=== PATIENT | female | born 1985 | race American Indian/Alaskan Native ===

== ENCOUNTER 2017-03-22 14:08 | Outpatient (CLI) | payer MEDICAID ==
[2017-03-22] MEDS ORDERED: LACTATED RINGERS 500 ML IV ONE (14:46)
[2017-03-22] MEDS: BRETHINE SUB-Q SCH ×2 (15:30→17:00)
[2017-03-22 15:57] LABS: Bilirubin,Urine NEG (Negative); Blood,Urine NEG (Negative); Ketones,Urine TR mg/dL (Negative); Leukocyte Esterase,Urine NEG (Negative); Mucus,Urine 3+ /HPF; Nitrite,Urine NEG (Negative)
[2017-03-22 17:52] VITALS: BP 141/72
== END 2017-03-22 18:20 | disposition home or self-care (01) ==
LOC: TRG 14:08
PROVIDERS: ATTEND Obstetrics & Gynecology
DX: O47.03 False labor before 37 completed weeks of gestation, third trimester (principal); Z3A.28 28 weeks gestation of pregnancy
CPT/HCPCS: 36415; 59025; 81001; 82731; 87086; 96360; 96372; J3105; J7120

== ENCOUNTER 2017-05-30 05:29 | Inpatient (IN) | payer OTHER, MEDICAID ==
--- NOTE | 2017-05-29 19:18 | History and Physical Report ---
History of Present Illness Date of examination: 05/26/17 Date of admission: 05/30/17 Chief complaint: her for History of present illness: pt here for repeat . All riks, benefits and alternatives were d/w pt and questions were addressed and answered. Consent signed and placed on the chart. EDC Confirmation: 06/04/2017 Gestational Age: 14 4/7 weeks Past History : 2 Term Births: 1 Living Children: 1 Para: 1 Prev : 1 # 1 Delivery date: 01/07/2014 Weeks Gestation: 38 Delivery type: Anesthesia type: epidural Delivery location: [facility] Infant Sex: male weight: 5.63 Comments: breech presentation, Premature ROM Past Medical History: Reviewed history and no changes required: Negative Past Medical History Past Surgical History: negative Past Medical History Surgery (Non-polish maker): negative Abnormal PAP: negative PAIGE Exposure: negative Infertility: negative Uterine Anomaly: negative Uterine Surgery (not C/S): negative Other Gynecologic Problems: negative Infection History Hx of STD: none HIV Risk Eval: low risk Hepatitis B Risk Eval: low risk Personal hx. of genital herpes: no Partner hx. of genital herpes: no Rash, Viral, or Febrile illness since last LMP? no Varicella/Chicken Pox Status: Previous Disease TB Risk: no Genetic History Congenital Heart Defect: Mom: no Dad: no Rivera Disease: Mom: no Dad: no Thalassemia Mom: no Dad: no Neural Tube Defect Mom: no Dad: no Down's Syndrome Mom: no Dad: no Salvador-Sachs Mom: no Dad: no Sickle Cell Disease/Trait Mom: no Dad: no Hemophilia Mom: no Dad: no Muscular Dystrophy Mom: no Dad: no Cystic Fibrosis Mom: no Dad: no Forreston Chorea Mom: no Dad: no Mental Retardation Mom: no Dad: no Fragile X Mom: no Dad: no Other Genetic/Chromosomal Disorder Mom: no Dad: no Child w/other defect Mom: no Dad: no Enviromental Exposures Xray Exposure: no Medication, drug, or alcohol use since LMP: no Chemical/Other Exposure: no Exposure to Cat Liter: no Hx of Parvovirus (Fifth Disease): no Occupational Exposure to Children: none Current Allergies (reviewed today): No known allergies Past History Past Medical History: no pertinent history 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: denies: abnormal PAP smear Family/Genetic History: other (see hpi) Social history: no significant social history, single - Obstetrical History Expected Date of Delivery: 06/04/17 Actual Gestation: 39 Week(s) 1 Day(s) : 2 Para: 1 Number of Living Children: 1 Medications and Allergies Allergies Allergy/AdvReac Type Severity Reaction Status Date / Time No Known Allergies Allergy Verified 05/07/13 14:38 Home Medications Medication Instructions Recorded Confirmed Last Taken Type Pnv with Ca,No.72/Iron/FA 1 tab PO DAILY 11/23/13 03/22/17 1 Day Ago History [ Plus Tablet] ~03/21/17 Active Meds: Active Medications Citric Acid/Sodium Citrate (Bicitra) 30 ml PO ONCE ONE Stop: 05/30/17 05:01 Famotidine (Pepcid) 20 mg IV ONCE ONE Stop: 05/30/17 05:01 Cefazolin Sodium (Ancef/Sterile Water 2 Gm/20 Ml) 2 gm in 20 mls @ 80 mls/hr IV PREOP NR PRN Reason: Protocol Lactated Ringer's (Lactated Ringers) 1,000 mls @ 2,250 mls/hr IV PREOP MAYO Stop: 05/31/17 05:27 Oxytocin/Sodium Chloride (Pitocin/Ns 20 Unit/1000ml Drip) 20 units in 1,000 mls @ 0 mls/hr IV TITR MAYO PRN Reason: As Directed Metoclopramide HCl (Reglan) 10 mg IV ONCE ONE Stop: 05/30/17 05:01 Review of Systems All systems: negative - Physical Exam Cardiovascular: Normal S1, Normal S2 Lungs: Positive: Clear to auscultation, Normal air movement Abdomen: Positive: normal appearance, soft. Negative: distention, tenderness Genitourinary (Female): Positive: other (deferred) Extremities: Positive: normal. Negative: tenderness, edema Deep Tendon Reflex Grade: Normal +2 Results All other labs normal. Assessment and Plan - Patient Problems (1) 39 weeks gestation of Status: Acute (2) Previous delivery affecting , antepartum Status: Acute Plan to address problem: -admit -prepare for repeat -consent signed and placed on the chart
[~2017-05-30 05:29] MED LIST: ANCEF/STERILE WATER 2 GM/20 ML 2 GM/20 ML SYRINGE IV NR; LACTATED RINGERS 1,000 ML IV SCH; PITOCin/NS 20 UNIT/1000ML DRIP 20 UNITS/1,000 ML BAG IV SCH
[2017-05-30] MEDS ORDERED: BICITRA PO ONE (06:00)
[2017-05-30] MEDS ORDERED: PEPCID IV ONE (06:00)
[2017-05-30] MEDS ORDERED: REGLAN IV ONE (06:00)
[2017-05-30 06:30] LABS: Basophils % (Auto) 0.6 % (0.0-1.8); Eosinophils # (Auto) 0.3 K/mm3 (0.0-0.4); Eosinophils % (Auto) 3.4 % (0.0-4.3); Hematocrit 31.3 % (30.3-42.9); Hemoglobin 9.9 gm/dl (10.1-14.3); Lymphocytes % (Auto) 22.4 % (13.4-35.0); Mean Corpuscular HGB Conc 32 % (30-34); Mean Corpuscular Volume 75 fl (79-97); Monocytes # (Auto) 0.8 K/mm3 (0.0-0.8); Monocytes % (Auto) 8.7 % (0.0-7.3); Platelet Count 356 K/mm3 (140-440); Red Cell Distribution Width 15.4 % (13.2-15.2)
[2017-05-30 07:07] LABS: Mean Corpuscular Hemoglobin 24 pg (28-32)
[2017-05-30] MEDS ORDERED: MORPHINE ONE (07:25)
--- NOTE | 2017-05-30 07:38 | Anesthesia Consultation ---
Anesthesia Consult and Med Hx Date of service: 05/30/17 - Airway Anesthetic Teeth Evaluation: Crowns ROM Head & Neck: Adequate Mental/Hyoid Distance: Adequate Mallampati Class: Class II Intubation Access Assessment: Probably Good - Pulmonary Exam CTA: Yes - Cardiac Exam Cardiac Exam: RRR - Pre-Operative Health Status ASA Pre-Surgery Classification: ASA2 Proposed Anesthetic Plan: Spinal (previous ) - Pulmonary Hx Asthma: No COPD: No Hx Pneumonia: No - Cardiovascular System Hx Hypertension: No - Central Nervous System Hx Seizures: No Hx Psychiatric Problems: No - Endocrine Hx Renal Disease: No Hx End Stage Renal Disease: No Hx Hypothyroidism: No Hx Hyperthyroidism: No - Hematic Hx Anemia: No Hx Sickle Cell Disease: No - Other Systems Hx Alcohol Use: No
--- NOTE | 2017-05-30 07:39 | Anesthesia Day of Surgery ---
Anesthesia Day of Surgery - Day of Surgery Patient Examined: Yes Patient H&P Reviewed: Yes Patient is NPO: Yes
[2017-05-30] MEDS ORDERED: WATER FOR IRRIG STERILE IR ONE (08:10)
[2017-05-30] MEDS ORDERED: NACL 0.9% IR ONE (08:10)
--- NOTE | 2017-05-30 09:33 | Operative Report ---
Operative Report Operative Report: Date of procedure: 05/30/2017 Pre-operative diagnosis: 39 weeks gestation Previous Uterine fibroids Post-operative diagnosis: Same Procedure name(s): Repeat low transverse section via Pfannenstiel skin incision Surgeon: Dr. Crowder Sulfur Chloride Operator: SHAE Anesthesia: Epidural EBL: 800 mL Urine output: 150 mL of clear urine out at the end of the procedure Fluids: 1 L Findings: Liveborn female weight 6 lbs. 14 oz. Apgars of 8 and 9 at one and 5 minutes Nuchal cord 1 that was easily reduced Terminal meconium Uterine fibroids measuring approximately from 1 cm to 4 cm Indications: Patient presents for scheduled repeat section. All risks benefits and alternatives were discussed with the patient. Consents were signed and placed on the chart. Procedure: Patient was taking to the operating room. Patient was then prepped and draped in sterile fashion after anesthesia was found to be adequate. A low transverse skin incision was made with the scalpel through previous incisional scar and carried down to the underlying layer of fascia with the Bovie. The fascia was then incised in the midline and this incision was extended bilaterally with the Bovie. The superior aspect of the fascia was grasped with Aubrey clamps tented upward and dissected off of the anterior rectus muscles with the scalpel. In similar fashion the inferior aspect of the fascia was grasped with Aubrey clamps tented upward and dissected off of the anterior rectus muscles. The rectus muscles were then bluntly divided in the midline. The peritoneum was identified and entered into sharply. Nadja retractor was placed The bladder blade was placed. A lower transverse uterine incision was made with the scalpel and extended bilaterally with the bandage scissors. Artificial rupture of membranes was performed yielding clear amniotic fluid. The 's head was then delivered atraumatically. Nuchal cord was easily reduced. The anterior shoulder and rest of delivered without difficulty. The umbilical cord was clamped x2. The cord was cut. The infant was then placed in sterile bassinet. [The cord blood was collected]. The placenta was manually extracted in its entirety. The uterus was exteriorized and cleared of all clots and debris. The uterine incision was closed using 0 Vicryl in a running locking fashion. The posterior cul-de-sac was copiously irrigated. The uterus was returned to the abdomen. The gutters were also irrigated. The anterior rectus muscles were reapproximated using 3-0 Vicryl. The anterior rectus fascia was reapproximated using 0 Vicryl in a running fashion. The subcuticular fat was reapproximated using 2-0 Vicryl in a running fashion. The skin was reapproximated with 4-0 Monocryl in a subcuticular stitch. The patient tolerated the procedure well. Sponge lap and needle counts were all correct x3. Patient was taken to the recovery room awake and in stable condition.
[2017-05-30] MEDS ORDERED: NACL 0.9% 1000 ML 1,000 ML ONE (09:42)
[2017-05-30] MEDS ORDERED: TORADOL IV PRN (10:00)
[2017-05-30] MEDS ORDERED: FEOSOL PO SCH (10:00)
[2017-05-30] MEDS ORDERED: TUCKS PAD TP PRN (10:00)
[2017-05-30] MEDS ORDERED: SODIUM CHLORIDE FLUSH SYRINGE 10 ML IV PRN (10:00)
[2017-05-30] MEDS ORDERED: MORPHINE IV PRN ×2 (10:00→10:30)
[2017-05-30] MEDS ORDERED: LANSINOH TP PRN (10:00)
[2017-05-30] MEDS ORDERED: NACL 0.9% 500 ML 500 ML IV NR (10:00)
[2017-05-30] MEDS ORDERED: MYLICON PO PRN (10:00)
[2017-05-30] MEDS ORDERED: NARCAN 0.4 MG/1 ML IV PRN (10:30)
[2017-05-30] MEDS: BENADRYL IV PRN (10:54)
[2017-05-30] MEDS ORDERED: ZOFRAN IV PRN (11:00)
[2017-05-30] MEDS ORDERED: ANCEF/NS 1 GM/50 ML 1 GM/50 ML BAG IV SCH (15:00)
[2017-05-30] MEDS: D5LR 1,000 ML IV SCH (16:28)
[2017-05-30] MEDS: ceFAZolin 1 GM in NACL 0.9% 20 ML IV SCH (16:28)
[2017-05-30 20:23] LABS: Hematocrit 27.6 % (30.3-42.9); Hemoglobin 8.8 gm/dl (10.1-14.3)
[2017-05-31] MEDS: MOTRIN PO PRN ×4 (00:11→22:23)
[2017-05-31] MEDS: D5LR 1,000 ML IV SCH (00:11)
[2017-05-31] MEDS: BENADRYL IV PRN (00:22)
[2017-05-31] MEDS: ceFAZolin 1 GM in NACL 0.9% 20 ML IV SCH (00:23)
--- NOTE | 2017-05-31 06:45 | Progress Note ---
Assessment and Plan - Patient Problems (1) delivery delivered Onset Date: ~05/30/17 Current Visit: No Status: Acute Plan to address problem: No c/o voiced VSS FF below umb Lochia small Dressing D&I to be removed this AM H &H01/29 drop r/t blood loss from surgery Pt is asymptomatic Doing well s/p repeat c/s P: continue pathway Advance as tolerated. Subjective - Subjective Date of service: 05/31/17 (no c/o voiced) Principal diagnosis: Day # 1 s/p repeat c/s Patient reports: appetite normal, voiding normally, pain well controlled, ambulating normally : doing well Objective - Vital Signs Latest vital signs: Vital Signs Temp Pulse Resp BP BP Pulse Ox 05/31/17 06:21 18 05/31/17 00:25 98.3 F 63 20 125/76 95 05/31/17 00:11 18 05/30/17 20:44 98.8 F 61 20 128/72 95 05/30/17 16:03 67 98 05/30/17 16:00 97.6 F 65 18 129/79 97 05/30/17 14:05 106/41 98 05/30/17 11:16 97.5 F L 20 141/79 05/30/17 11:00 97.5 F L 50 L 20 141/79 100 05/30/17 10:45 97.5 F L 05/30/17 10:40 60 24 126/80 100 05/30/17 10:31 57 L 19 116/57 100 05/30/17 10:30 56 L 17 127/73 100 05/30/17 10:26 59 L 14 127/73 100 05/30/17 10:20 51 L 16 130/69 98 05/30/17 10:15 51 L 16 123/70 97 05/30/17 10:10 51 L 16 125/72 99 05/30/17 10:05 49 L 16 127/70 100 05/30/17 10:00 56 L 18 124/78 100 05/30/17 09:55 52 L 13 127/69 99 05/30/17 09:50 54 L 11 L 124/69 100 05/30/17 09:44 98 05/30/17 09:42 97.5 F L 56 L 16 122/68 98 05/30/17 07:16 98.6 F 18 Intake and Output 05/30/17 05/30/17 05/31/17 14:59 22:59 06:59 Intake Total 7284 540 1317.583 Output Total 210 1000 1200 Balance 1340 -220 4.583 Intake: IV 1550 964.583 D5lr 1,000 ml @ 125 mls/ 964.583 hr IV DIRECT MAYO Rx#: [id number] Oral 300 Intake, Free Water 480 240 Output: Urine 210 1000 1200 Indwelling Catheter 1000 1200 Other: Total, Intake Amount 300 Total, Output Amount 1000 1200 Estimated Blood Loss 800 - Exam Breasts: Present: normal Cardiovascular: Present: Regular rate Lungs: Present: Normal air movement Abdomen: Present: normal appearance, soft Uterus: Present: normal, firm, fundal height below umbilicus Extremities: Present: normal Deep Tendon Reflex Grade: Normal +2 Incision: Present: normal, dry, intact, dressed (to be removed this AM) - Labs Labs: Abnormal lab results 05/30/17 05/30/17 Range/Units 06:10 19:52 Hgb 9.9 L 8.8 L (10.1-14.3) gm/dl Hct 27.6 L (30.3-42.9) % MCV 75 L (79-97) fl MCH 24 L (28-32) pg RDW 15.4 H (13.2-15.2) %
[2017-05-31] MEDS: NORCO 5/325 PO PRN ×2 (11:45→22:23)
--- NOTE | 2017-05-31 15:20 | Progress Note ---
Subjective Date of service: 05/31/17 Principal diagnosis: Day # 1 s/p repeat c/s Interval history: Patient seen, ambulating well, comfortable except when sitting, pain 5-6, taking oral meds. Objective - Constitutional Vitals: Vital Signs - 12hr 05/31/17 05/31/17 05/31/17 05:22 06:21 08:21 Temperature 98.4 F Pulse Rate 63 62 Respiratory 20 18 Rate Blood Pressure 128/60 Blood Pressure [Right] O2 Sat by Pulse 96 96 Oximetry 05/31/17 09:07 Temperature 98.4 F Pulse Rate 64 Respiratory 18 Rate Blood Pressure Blood Pressure 120/59 [Right] O2 Sat by Pulse Oximetry - Labs CBC & Chem 7: 05/30/17 19:52 Labs: Abnormal lab results 05/30/17 Range/Units 19:52 Hgb 8.8 L (10.1-14.3) gm/dl Hct 27.6 L (30.3-42.9) %
--- NOTE | 2017-06-01 06:48 | Discharge Summary ---
Providers - Providers Date of Admission: 05/30/17 05:29 Date of discharge: 06/01/17 (pt request option of going home this evening) Attending physician: VANDANA GUILLEN Primary care physician: VANDANA GUILLEN Hospitalization Reason for admission: section Delivery: Procedure: repeat low transverse Episiotomy: none Laceration: none Incision: normal, dry, intact Other procedures: none complications: none Discharge diagnosis: IUP at term delivered baby: female Hospital course: uncomplicated repeat section Pt w/o complaint VSS FF below umb Lochia scant Incision D&I H&H stable Pt asymptomatic Doing well s/p repeat c/s P: d/c today with instructions RTO 1 week postop care RX provided @ d/c Condition at discharge: Good Disposition: DC-01 TO HOME OR SELFCARE - Discharge Diagnoses (1) delivery delivered Status: Acute Comment: RTO 1 week Plan - Discharge Medications Prescriptions: Docusate Sodium [Colace] 100 mg PO BID PRN #60 capsule PRN Reason: Constipation Ferrous Sulfate 325 mg PO DAILY #30 tablet. Ibuprofen 800 mg PO Q6HR #30 tablet oxyCODONE /ACETAMINOPHEN [Percocet 5/325] 1 tab PO Q4HR #30 tab - Provider Discharge Summary Activity: routine, no sex for 6 weeks, no heavy lifting 4 weeks, no strenuous exercise Diet: routine Instructions: routine Additional instructions: [] Smoking cessation referral if applicable(refer to patient education folder for contact #) [] Refer to [facility] Booklet Call your doctor immediately for: * Fever > 100.5 * Heavy vaginal bleeding ( >1 pad per hour) * Severe persistent headache * Shortness of breath * Reddened, hot, painful area to leg or breast * Drainage or odor from incision. * Keep incision clean and dry at all times and follow doctor's instructions regarding bathing/showering - Follow up plan Follow up: VANDANA GUILLEN MD [Primary Care Provider] - 7 Days (Congratulations! Please call [phone] with any concerns. Please keep your postoperative appointment as scheduled. Take medications as prescribed. )
[2017-06-01 12:06] VITALS: BP 131/82
[2017-06-01] MEDS: NORCO 5/325 PO PRN (13:27)
[2017-06-01] MEDS: MOTRIN PO PRN (13:27)
--- NOTE | 2017-06-12 13:23 | Query-Anemia ---
Deajose Leary___Lakesha Date: 06/12/17 Manager Contract/CDS:____Harismarsha / Seferino Phone#:___[phone] Exercise your independent professional judgment when responding to this query. Questions asked do not imply a particular answer is desired or expected. We greatly appreciate your clarification on this issue. Clinical Documentation States: 31 year old female was admitted on 05/29/17 The Operative report (Dr. Crowder) states " Pre-operative diagnosis: 39 weeks gestation Previous Uterine fibroids Post-operative diagnosis: Same Procedure name(s): Repeat low transverse section via Pfannenstiel skin incision EBL: 800 mL " Clinical Findings Show: 05/30/17(6:10) 05/30/17 (19:52) Hgb: 9.9 8.8 Hct: 31.3 27.6 Etiology: [ ] Anemia due to acute blood loss [ ] Anemia due to chronic blood loss [ ] Precipitous Drop in Hemoglobin [ ] Precipitous Drop in Hematocrit [ ] Anemia secondary to ESRD [ ] Anemia secondary to neoplastic disease [ ] Iron deficiency anemia due to malabsorption [ ] GI Bleed from: [ x] Anemia of chronic disease ,Other: [ ] Other: [ ] Unable to determine [ ] Comment/Explanation: Present on Admission: [y ] Yes (Y) [ ] Clinically undeterminable (W) [ ] No (N) Please also document response in your Progress Notes and/or Discharge Summary and indicate if the condition was present on admission. RENITA
== END 2017-06-01 14:10 | disposition home or self-care (01) | DRG 766 ==
LOC: APU 05:29 → OB 11:09
PROVIDERS: ADMIT Obstetrics & Gynecology; ATTEND Obstetrics & Gynecology
PROC: 10D00Z1 Extraction of Products of Conception, Low, Open Approach (ICD-10-PCS; principal; 2017-05-30)
DX: O34.211 Maternal care for low transverse scar from previous cesarean delivery (principal); Z3A.39 39 weeks gestation of pregnancy; Z37.0 Single live birth; O34.13 Maternal care for benign tumor of corpus uteri, third trimester; D25.9 Leiomyoma of uterus, unspecified; O69.81X0 Labor and delivery complicated by cord around neck, without compression, not applicable or unspecified; D63.8 Anemia in other chronic diseases classified elsewhere
CPT/HCPCS: 36415; 85014; 85018; 85025; 86850; 86900; 86901; 99211; A6250; C9250; G0463; J0690; J1200; J2270; J2590; J2765; J7030; J7120; J7121